=== PATIENT | male | born 1950 ===

== ENCOUNTER → 2024-08-13 | Outpatient (CLI) | payer MEDICARE, BC ==
[2024-08-13 11:36] LABS: African American GFR (CKD) >90 (>60 ml/min/1.73 sqM); Blood Urea Nitrogen 16 mg/dL (9-20); Non-African American GFR(CKD) 87 (>60 ml/min/1.73 sqM)
--- NOTE | 2024-08-13 17:27 | CT ---
EXAMINATION TYPE: CT angio chest DATE OF EXAM: 08/13/2024 12:48 PM COMPARISON: 08/16/2023 CLINICAL INDICATION: Male, 73 years old with history of THORACIC AORTA ANYERISM, f/u aneurysm TECHNIQUE: CT of the chest is performed on a spiral scan at 2 mm thick sections. Study is performed with intravenous contrast timed for evaluation for thoracic aneurysm. This will limit additional por tions of the evaluation. 3-D MIP images reconstructed by the technologist are reviewed on the [facility] er in the coronal and sagittal planes. Contrast used:100 mL of Isovue 370 without and with IV Contrast, (none if empty) Oral contrast used: (none if empty) CT DLP: 596.1 mGycm, Automated exposure control for dose reduction was used. FINDINGS: There is a 4.2 cm ascending thoracic aortic aneurysm at the level of the main pulmonary artery. Previ ous measurement 4.4 cm. Main pulmonary artery measures 2.7 cm the bifurcation. The descending thoraci c aorta tapers normally to its visualized course. Aortic arch has 3 vessels appears unremarkable. There is ar 0.8 cm nodule posterior lateral right lung base, series 3 image 52. Small peripheral nodu le is at the posterior lung base measuring 0.4 cm. Bilateral lung base dependent increased lung markings are present which could be related to compressi ve atelectasis. Limited CT sections were through the upper abdomen. Upper abdomen appears unremarkable. IMPRESSION: 1. Ascending thoracic aortic aneurysm 4.2 cm. 2. Stable 0.8 cm and 0.4 nodules right lung base. Follow-up in one year is recommended. [facility], Workstation: [email or web address], 08/13/2024 5:24 PM
== END | disposition home or self-care (01) ==
LOC: RADCTMAIN 10:55
PROVIDERS: ATTEND Surgery
DX: I71.21 Aneurysm of the ascending aorta, without rupture (principal); R91.8 Other nonspecific abnormal finding of lung field
CPT/HCPCS: 82565; 84520; 71275; 36415; Q9967